=== PATIENT | male | born 1995 | race Caucasian/White ===

== ENCOUNTER 2016-12-14 01:05 | Emergency (ER) | payer OTHER ==
[2016-12-14 01:16] VITALS: RESP 16; TEMP 97.9
--- NOTE | 2016-12-14 01:24 | EDPHY ---
H & P Stated Complaint: c/o line neck pain x 2 days no inj/trauma, since pt says having olivarez/nausea HPI/ROS: HPI CHIEF COMPLAINT: Neck pain, headache status post Chiropractic neck manipulation. HISTORY OF PRESENT ILLNESS: This patient is a 21-year-old male, he is otherwise healthy presents emergency room neck pain. Neck pain has been present for 48 hours. No fever no vomiting. Patient reports to me that over the past 48 hours he has had some paravertebral neck pain. Worse with range of motion. This is atraumatic neck pain. Now states that over the past 12 hours he developed some headache frontal throbbing in nature. No meningeal signs. No stiff neck. No global headache. No posterior head pain. He did go to the chiropractor and head neck manipulation. Now he tells me his neck pain is worse. It is paravertebral cervical spine. No anterior neck pain no lateral neck pain. No midline pain. He denies chest pain shortness of breath. Denies high fever. He does state additionally he feels globally weak. Past Medical History: Denies medical history Past Surgical History: Denies surgical history Social History: [employer] student. Denies daily use of drugs alcohol tobacco products. Family History: Noncontributory. ROS REVIEW OF SYSTEMS: A comprehensive 10 point review of systems is otherwise negative aside from elements mentioned in the history of present illness. Exam Constitutional appears well nontoxic, triage nursing summary reviewed, vital signs reviewed, awake/alert. Eyes normal conjunctivae and sclera, EOMI, PERRLA. HENT head/neck very supple, full range of motion of the neck, no midline cervical spine pain, no step-offs, no crepitus, no carotid bruit, head exam is unremarkable. moist mucus membranes, no epistaxis, neck supple/ no meningismus , no raccoon eyes. Respiratory clear to auscultation bilaterally, normal breath sounds, no respiratory distress, no wheezing. Cardiovascular rate normal, regular rhythm, no murmur, no edema, distal pulses normal. Gastrointestinal soft, non-tender, no rebound, no guarding, normal bowel sounds, no distension, no pulsatile mass. Genitourinary no CVA tenderness. Musculoskeletal no midline vertebral tenderness, full range of motion, no calf swelling, no tenderness of extremities, no meningismus, good pulses, neurovascularly intact. Skin pink, warm, & dry, no rash, skin atraumatic. Neurologic completely normal neurological exam. No focal neuro deficits. awake, alert and oriented x 3, AAOx3, moves all 4 extremities equally, motor intact, sensory intact, CN II-XII intact, normal cerebellar, normal vision, normal speech. Psychiatric normal mood/affect. Heme/Lymph/Immune no lymphadenopathy. Differential Diagnosis: Includes but is not limited to in a particular order torticollis, nerve root compression, annular tear, disc disease, compression fracture, vertebral artery dissection, migraine headache, tension headache, cluster headache, doubt meningitis given history review of systems and how well this patient looks, viral illness, influenza. Medical Decision Making: Plan for this patient CT head without contrast, CT angiogram head and neck to rule out vertebral artery posterior circulation dissection given chiropractor manipulation. Check basic blood work, IV establishment IV fluid bolus, pain Medicine for acute headache. Re-evaluate. Re-evaluation: 0313: Patient CT scans head without contrast and angiogram head and neck after chiropractic neck manipulation or negative for arterial dissection or trauma. Unremarkable CT scans however on his CT scan it Dr. Nichols did notice that there is some thyroid nodules. This will need to be followed up outpatient. I did relay this to the patient. He understands. Re-examination at 3:14 a.m. at this time he was sleeping. Upon re-evaluation he is nontoxic-appearing is no meningeal signs. No stiff neck. He tells me feels much better after migraine medication he received. He is nontoxic. No systemic white count no fever. Supple neck. I do not feel that he needs a lumbar puncture. I do not believe he has meningitis given clinical exam history review of systems. His CT scan is reassuring. I have given him return precautions. He understands return to the emergency room if develops worsening symptoms includes headache, neck pain, vomiting, fever questions or concerns. Additionally as for his thyroid nodules he understands he needs to have this followed up outpatient with his primary care doctor. Source: Patient - Medical/Surgical History Hx Asthma: No Hx Chronic Respiratory Disease: No Hx Diabetes: No Hx Cardiac Disease: No Hx Renal Disease: No Hx Cirrhosis: No Hx Alcoholism: No Hx HIV/AIDS: No Hx Splenectomy or Spleen Trauma: No Other PMH: acl surg R knee x 2 - Social History Smoking Status: Never smoked Constitutional: Initial Vital Signs Temperature (C) 36.6 C 12/14/16 01:08 Heart Rate 76 12/14/16 01:08 Respiratory Rate 16 12/14/16 01:08 Blood Pressure 157/98 H 12/14/16 01:08 O2 Sat (%) 95 12/14/16 01:08 O2 Delivery Mode Room Air Allergies/Adverse Reactions: No Known Allergies Allergy (Unverified 12/14/16 01:13) Home Medications: Medication Instructions Recorded Ibuprofen [Motrin (*)] 800 mg PO Q6-8PRN #7 tab 12/14/16 Medical Decision Making - Data Points Laboratory Results: Laboratory Results 12/14/16 01:40 12/14/16 01:40 12/14/16 12/14/16 01:40 01:40 WBC 6.79 10^3/uL 10^3/uL (3.80-9.50) RBC 4.85 10^6/uL 10^6/uL (4.40-6.38) Hgb 14.9 g/dL g/dL (13.7-17.5) Hct 42.4 % % (40.0-51.0) MCV 87.4 fL fL (81.5-99.8) MCH 30.7 pg pg (27.9-34.1) MCHC 35.1 g/dL g/dL (32.4-36.7) RDW 11.9 % % (11.5-15.2) Plt Count 272 10^3/uL 10^3/uL (150-400) MPV 9.3 fL fL (8.7-11.7) Neut % (Auto) 45.4 % % (39.3-74.2) Lymph % (Auto) 43.6 % % (15.0-45.0) Guthrie % (Auto) 8.2 % % (4.5-13.0) Eos % (Auto) 1.9 % % (0.6-7.6) Baso % (Auto) 0.6 % % (0.3-1.7) Nucleat RBC Rel Count 0.0 % % (0.0-0.2) Absolute Neuts (auto) 3.08 10^3/uL 10^3/uL (1.70-6.50) Absolute Lymphs (auto) 2.96 10^3/uL 10^3/uL (1.00-3.00) Absolute Monos (auto) 0.56 10^3/uL 10^3/uL (0.30-0.80) Absolute Eos (auto) 0.13 10^3/uL 10^3/uL (0.03-0.40) Absolute Basos (auto) 0.04 10^3/uL 10^3/uL (0.02-0.10) Absolute Nucleated RBC 0.00 10^3/uL 10^3/uL (0-0.01) Immature Gran % 0.3 % % (0.0-1.1) Immature Gran # 0.02 10^3/uL 10^3/uL (0.00-0.10) Sodium 143 mEq/L mEq/L (134-144) Potassium 3.9 mEq/L mEq/L (3.5-5.2) Chloride 103 mEq/L mEq/L (97-110) Carbon Dioxide 25 mEq/l mEq/l (22-31) Anion Gap 15 mEq/L mEq/L (8-16) BUN 13 mg/dL mg/dL (7-23) Creatinine 0.7 mg/dL mg/dL (0.7-1.3) Estimated GFR > 60 Glucose 95 mg/dL mg/dL (70-100) Calcium 9.8 mg/dL mg/dL (8.5-10.4) Medications Given: Discontinued Medications Dexamethasone (Decadron Injection) 10 mg IVP EDNOW ONE Stop: 12/14/16 01:30 Last Admin: 12/14/16 01:43 Dose: 10 mg Diphenhydramine HCl (Benadryl Injection) 25 mg IVP EDNOW ONE Stop: 12/14/16 01:30 Last Admin: 12/14/16 01:43 Dose: 25 mg Sodium Chloride (Ns) 1,000 mls @ 0 mls/hr IV ONCE ONE; Wide Open PRN Reason: Protocol Stop: 12/14/16 01:30 Last Admin: 12/14/16 01:44 Dose: 1,000 mls Ketorolac Tromethamine (Toradol) 30 mg IVP EDNOW ONE Stop: 12/14/16 01:30 Last Admin: 12/14/16 01:43 Dose: 30 mg Metoclopramide HCl (Reglan Injection) 10 mg IVP EDNOW ONE Stop: 12/14/16 01:30 Last Admin: 12/14/16 01:44 Dose: 10 mg Departure - Departure Disposition: Home, Routine, Self-Care Clinical Impression: Neck pain Condition: Good Instructions: Neck Pain (ED), Thyroid Nodules (ED) Additional Instructions: 1.Please have your thyroid gland checked by her primary care doctor. 2. Return to the emergency room if he develops worsening symptoms includes headache, fever, neck pain, vomiting or you do not feel well. Referrals: NONE *PRIMARY CARE P,. [Primary Care Provider] - As per Instructions Prescriptions: Ibuprofen [Motrin (*)] 800 mg PO Q6-8PRN #7 tab
[2016-12-14] MEDS ORDERED: DEXAMETHASONE 10 MG/ML VIAL IVP ONE ×2 (01:29)
[2016-12-14] MEDS ORDERED: KETOROLAC 30 MG/1 ML SDV IVP ONE ×2 (01:29)
[2016-12-14] MEDS ORDERED: NS 1,000 ML IV ONE ×2 (01:29)
[2016-12-14] MEDS ORDERED: METOCLOPRAMIDE 10 MG/2 ML VIAL IVP ONE ×2 (01:29)
[2016-12-14] MEDS ORDERED: IOPAMIDOL (ISOVUE 370) 100 ML BTL IV ONE ×2 (01:41)
[2016-12-14 01:54] LABS: PLATELET COUNT 272 10^3/uL (150-400)
[2016-12-14 03:08] VITALS: PULSE 74
[2016-12-14 03:26] VITALS: BP 132/69; O2SAT 96
== END 2016-12-14 03:25 | disposition home or self-care (01) ==
DX: M54.2 Cervicalgia (principal); E86.9 Volume depletion, unspecified
CPT/HCPCS: 96374; J1100; J1200; J1885; J2765; Q9967